=== PATIENT | female | born 1955 | race Caucasian/White ===

== ENCOUNTER 2019-07-20 01:57 | Inpatient (IN) ==
[2019-07-15 14:00] LABS: HEMATOCRIT 49.5 % (37.0-47.0); HEMOGLOBIN 16.6 g/dL (12.0-16.0); MCH 31.3 PG (27-31); MCHC 33.5 g/dL (33-37); MCV 93.2 FL (81-99); MPV 11.1 FL (7.4-10.4); RBC 5.31 XMIL (4.2-5.4); RDW 13.4 % (11.5-14.5); WBC 14.01 X1000 (4.8-10.8)
[2019-07-15 14:14] LABS: AGAP 13; BUN 13 mg/dL (8-22); CALCIUM 9.2 mg/dL (8.8-10.2); CHLORIDE 97 mmol/L (98-107); COSMO 270; CREATININE 0.7 mg/dL (0.5-0.9); ESTIMATED GFR > 60; GLUCOSE 165 mg/dL (70-104); POTASSIUM 4.5 mmol/L (3.5-5.1); SODIUM 133 mmol/L (136-145); TCO2 23 mmol/L (25-35)
--- NOTE | 2019-07-15 14:42 | EKG Report ---
Test Performed on : 07/15/2019 1:20:32 PM Test Reason : PAT Blood Pressure : / mmHG Vent. Rate : 096 BPM Atrial Rate : 096 BPM P-R Int : 166 ms QRS Dur : 078 ms QT Int : 386 ms P-R-T Axes : 074 073 090 degrees QTc Int : 487 ms Normal sinus rhythm. Normal ECG When compared with ECG of 25-JUN-2019 22:52, (Unconfirmed) No significant change was found Confirmed by Haleigh GODINEZ, Herminio Mckeon ([id number]) on 07/15/2019 10:16:55 PM
[2019-07-20] MEDS ORDERED: KEFZOL 1 GM/D5W 1 GM/50 ML IVPB ONE (10:20)
[2019-07-20] MEDS ORDERED: LR 1,000 ML ONE (10:20)
[2019-07-20] MEDS ORDERED: KEFZOL ONE (11:55)
[2019-07-20] MEDS ORDERED: NORCURON ONE ×2 (11:56→14:49)
[2019-07-20] MEDS ORDERED: THROMBIN-JMI ONE (11:56)
[2019-07-20] MEDS ORDERED: SODIUM CHLORIDE 0.9% 10 ML ONE (11:56)
[2019-07-20] MEDS ORDERED: HEPARIN ONE (11:56)
[2019-07-20] MEDS ORDERED: QUELICIN (DOSE) ONE (11:56)
[2019-07-20] MEDS ORDERED: XYLOCAINE-MPF 2% ONE (11:56)
[2019-07-20] MEDS ORDERED: NS 1,000 ML ONE ×2 (11:56→16:15)
[2019-07-20] MEDS ORDERED: SENSORCAINE 0.25%/EPI 1:200,000 ONE (11:56)
[2019-07-20] MEDS ORDERED: DIPRIVAN 1% ONE (11:56)
[2019-07-20] MEDS ORDERED: ROBINUL ONE (12:03)
[2019-07-20] MEDS ORDERED: HEPARIN (DOSE) ONE ×2 (12:05→13:37)
[2019-07-20] MEDS ORDERED: FENTANYL ONE ×2 (13:02→13:27)
[2019-07-20] MEDS ORDERED: ZOFRAN ONE (13:37)
[2019-07-20] MEDS ORDERED: DECADRON ONE (13:37)
[2019-07-20] MEDS ORDERED: NEO-SYNEPHRINE ONE (13:56)
[2019-07-20] MEDS ORDERED: STERILE WATER INJ. ONE (14:49)
[2019-07-20 15:04] LABS: URINE SOURCE CATH
[2019-07-20 15:11] LABS: BILIRUBIN URINE NEGATIVE (NEGATIVE); BLOOD URINE NEGATIVE (NEGATIVE); COLOR YELLOW; GLUCOSE URINE NEGATIVE (NEGATIVE); KETONE URINE NEGATIVE (NEGATIVE); LEUKOCYTES URINE NEGATIVE (NEGATIVE); NITRITE URINE NEGATIVE (NEGATIVE); PROTEIN URINE TRACE mg/dL (NEGATIVE); SP GRAVITY URINE 1.026; TURBIDITY URINE CLEAR (CLEAR); UROBILINOGEN URINE 2 mg/dL (NORMAL)
[2019-07-20 15:12] LABS: UR EPITHELIAL CELLS <10 /HPF (<10); URINE BACTERIA NEGATIVE /HPF; URINE RBC <10 /HPF (<10); URINE WBC <10 /HPF (<10)
[2019-07-20] MEDS: DILAUDID ONE ×2 (16:28→16:34)
--- NOTE | 2019-07-20 16:29 | OPERATIVE NOTE ---
PROCEDURE DATE: 07/20/2019 PROCEDURE PERFORMED: Left femoral popliteal in situ vein bypass. SURGEON: Lopez Mayers MD HRIS MANAGER: Scout Parsons RN PREOPERATIVE DIAGNOSIS: Left leg claudication secondary to left superficial femoral artery occlusion. POSTOPERATIVE DIAGNOSIS: Left leg claudication secondary to left superficial femoral artery occlusion. DESCRIPTION OF PROCEDURE: After satisfactory general endotracheal anesthesia was achieved, the left leg was prepped and draped in a sterile fashion. The foot was excluded. We made a vertical incision in the left groin and dissected down to the common femoral artery. We surrounded it with an umbilical tape proximally. The branches at the profunda were surrounded with a large vessel loop. The superficial femoral was surrounded with a large vessel loop. The small branches were wrapped with 2-0 silk. We identified the greater saphenous vein. We exposed it and ligated its branches. We marked it on its anterior aspect of the luis alberto so we would not twist it. We then turned our attention distally and made a longitudinal incision in the distal medial thigh. We then dissected into the popliteal space and identified the popliteal artery, surrounded it with the vessel loops proximally and distally. We went back and gave the patient 7000 units of heparin. After it had circulated for 3 minutes, we then placed a Satinsky clamp at the takeoff of the greater saphenous vein. We clamped off the vein with a small bulldog. We then transected the vein and oversewed the stump with a 5-0 Prolene horizontal mattress stitch, followed by a running stitch. We looked at the opened end. We placed it over to the artery and it was possible to place it at the bifurcation of the common femoral. We then clamped off the common femoral and occluded flow in the branch vessels and then incised the artery, extended it with the Pastor scissors, used a 6 punch. We spatulated the vein somewhat. One valve leaflet was excised. We then constructed the anastomosis with a 5-0 Prolene stitch. We then allowed flow into the first valve. We turned our attention distally and then dissected out the vein from the skin flap posteriorly. After exposing it, we marked it so we would not twist it. We found a branch. We then made a small transverse venotomy in the branch and passed the LeMaitre valvulotome up to the proximal anastomosis. We opened the valvulotome and then engaged the valves and came all the way down. We did this twice and after doing it twice, we had excellent pulsatile flow. We clipped off the branch through which we had entered the vein. We then dissected out the vein at the very distal end of the incision, transected that, and then ran the valvulotome from distal to proximal, first the small retrograde wire valvulotome. I was not completely satisfied with the flow so I then passed the LeMaitre valvulotome all the way back up and pulled it down and this improved the flow at the distal end. We clipped off the distal end. We then swung it or translocated it into the popliteal space. We occluded flow in the popliteal artery, incised the popliteal artery on its medial aspect, and extended it with the Pastor scissors, then cut the vein to match the arteriotomy. We then constructed this anastomosis under 2.5 loupe magnification using a 6-0 Prolene stitch. As we finished, we backbled the popliteal which we had passed a 4 into the popliteal and it admitted the 4 easily. There was satisfactory backbleeding. We then passed the 4 up the vein graft as well. Good antegrade flow continued. We then finished the anastomosis and flow was established. A couple of extra stitches were used to achieve complete hemostasis at the distal anastomosis and 1 at the proximal anastomosis. We then cut down on the 2 areas where branches were noted. We found the branches and clipped them off with medium clips. A good pulse was present. We were satisfied with our result. We then closed the distal wound with 2 layers, one with an interrupted 3-0 Polysorb and one with a running 2-0 Polysorb. The counterincisions were closed in the subcutaneous tissue with some 3-0 Polysorb. The proximal incision was closed with 2-0 Polysorb running x1 and interrupted 3-0 Polysorb in the subcutaneous tissue. The skin was then closed with amy. Sterile dressings were applied. She tolerated it well. Estimated blood loss was 700 mL. She was sent to the recovery room in satisfactory condition. cc: Lopez Mayers MD
[2019-07-20] MEDS ORDERED: ZOFRAN IV PRN (16:49)
[2019-07-20] MEDS ORDERED: DILAUDID IV PRN (16:49)
[2019-07-20] MEDS: NEURONTIN PO SCH ×2 (17:00→20:49)
[2019-07-20] MEDS: NS 1,000 ML IV SCH (17:10)
[2019-07-20] MEDS ORDERED: D5W IV SCH (18:00)
[2019-07-20] MEDS ORDERED: KEFZOL IV SCH (18:00)
[2019-07-20] MEDS: DESYREL PO SCH (20:47)
[2019-07-20] MEDS: LIPITOR PO SCH (20:47)
[2019-07-20] MEDS: GLUCOPHAGE XR PO SCH (20:48)
[2019-07-20] MEDS: KEFZOL 1 GM/D5W 1 GM/50 ML IVPB IV SCH (20:48)
[2019-07-20] MEDS: PERIDEX MT SCH (20:48)
[2019-07-20] MEDS: NORCO-10 PO PRN (20:49)
[2019-07-21] MEDS: NORCO-10 PO PRN ×3 (05:17→20:55)
[2019-07-21] MEDS: KEFZOL 1 GM/D5W 1 GM/50 ML IVPB IV SCH ×2 (05:18→12:33)
[2019-07-21] MEDS: NS 1,000 ML IV SCH (05:18)
[2019-07-21] MEDS ORDERED: LANTUS INSULIN SUBQ SCH ×2 (09:00→17:00)
[2019-07-21] MEDS ORDERED: NS 1,000 ML IV SCH (09:28)
[2019-07-21] MEDS: NEURONTIN PO SCH ×3 (10:11→20:54)
[2019-07-21] MEDS: ASPIRIN PO SCH (10:12)
[2019-07-21] MEDS: TOPROL XL PO SCH (10:13)
[2019-07-21] MEDS: PLAVIX PO SCH (10:13)
--- NOTE | 2019-07-21 10:13 | GENERAL SURGERY PROGRESS NOTE ---
DATE: 07/21/2019 SUBJECTIVE: She is postop day 1 after left femoral-popliteal in situ vein bypass. Her leg is warm. She has good Doppler flow at the dorsalis pedis and posterior tibial position. Her bandages are dry. OBJECTIVE: She is afebrile blood pressure 107/48, heart rate 70 and regular. Glucose is 203 0. PLAN: Will be to remove her Gutierrez catheter today. She will get up and move around. We will plan for discharge tomorrow. cc: Lopez Mayers MD
[2019-07-21] MEDS: GLUCOTROL PO SCH (10:14)
[2019-07-21] MEDS: GLUCOPHAGE XR PO SCH (10:15)
[2019-07-21] MEDS: LOFIBRA PO SCH (10:15)
[2019-07-21] MEDS: PERIDEX MT SCH ×2 (10:16→20:55)
[2019-07-21] MEDS: LIPITOR PO SCH (20:54)
[2019-07-21] MEDS: DESYREL PO SCH (20:54)
[2019-07-22 07:09] LABS: BASO# 0.04 X1000 (0.0-0.2); BASO% 0.3 % (0.0-0.8); EOS# 0.14 X1000 (0.0-0.7); HEMATOCRIT 35.4 % (37.0-47.0); HEMOGLOBIN 11.4 g/dL (12.0-16.0); LYMPH# 6.47 X1000 (1.2-3.4); LYMPH% 46.8 % (20.5-51.1); MCH 31.9 PG (27-31); MCHC 32.2 g/dL (33-37); MCV 99.2 FL (81-99); MONO# 1.13 X1000 (0.11-0.59); MONO% 8.2 % (1.7-9.3); MPV 11.2 FL (7.4-10.4); NEUT# 6.05 X1000 (1.4-6.5); NEUT% 43.7 % (42.2-75.2); PLT 185 X1000 (130-400); RBC 3.57 XMIL (4.2-5.4); RDW 13.5 % (11.5-14.5); WBC 13.83 X1000 (4.8-10.8)
[2019-07-22] MEDS: GLUCOPHAGE XR PO SCH ×2 (07:52→08:58)
[2019-07-22] MEDS: TOPROL XL PO SCH (08:58)
[2019-07-22] MEDS: GLUCOTROL PO SCH (08:58)
[2019-07-22] MEDS: PERIDEX MT SCH (08:58)
[2019-07-22] MEDS: PLAVIX PO SCH (08:58)
[2019-07-22] MEDS: NEURONTIN PO SCH ×2 (08:58→14:30)
[2019-07-22] MEDS: LOFIBRA PO SCH (08:58)
[2019-07-22] MEDS: ASPIRIN PO SCH (08:58)
[2019-07-22] MEDS: NORCO-10 PO PRN ×2 (09:05→14:29)
[2019-07-22 15:06] VITALS: BP 137/53
--- NOTE | 2019-07-22 20:31 | GENERAL SURGERY PROGRESS NOTE ---
DATE: 07/22/2019 SUBJECTIVE: She is now 2 days after her left femoral-popliteal in situ vein bypass. OBJECTIVE: She has flow in her graft. She has a good Doppler flow in the dorsalis pedis and posterior tibial positions. LABORATORY DATA: White count is down to 13,800. Hemoglobin 11.4. PLAN: Discharge. She will go home on aspirin and Plavix. I will give her something for pain. She will return to see me in the office in a week. Wound care and activity were discussed. cc: Lopez Mayers MD
--- NOTE | 2019-07-26 10:49 | VASCULAR LAB ---
DATE: 07/20/2019 PIPE LINER: Stacia REQUESTING PHYSICIAN: Dr. Mayers INDICATION: Preop left tibial bypass. FINDINGS: Starting at zone 1 proximally 5.2 mm, zone 2 was 5.5, zone 3 was 5.0, zone 4 was 4.0, zone 5 was 4.3, zone 6 was 2.5, zone 7 was 3.1, zone 8 was 3.5. IMPRESSION: There is adequate conduit in the left greater saphenous knee, especially to the knee. It does become smaller in the proximal calf but becomes a more adequate caliber distally. There is no evidence of superficial thrombus. cc: MD Lopez Horne MD
== END 2019-07-22 17:54 | disposition home or self-care (01) | DRG 254 ==
LOC: SURHOLD 01:57 → 4N 15:01
PROVIDERS: ADMIT Surgery; ATTEND Surgery

== ENCOUNTER 2019-08-03 15:57 | Inpatient (IN) ==
[2019-08-03] MEDS ORDERED: NAPROSYN PO PRN (17:31)
[2019-08-03] MEDS ORDERED: FLEXERIL PO PRN (17:31)
[2019-08-03 17:44] LABS: HEMATOCRIT 37.9 % (37.0-47.0); HEMOGLOBIN 12.3 g/dL (12.0-16.0); MCH 31.1 PG (27-31); MCHC 32.5 g/dL (33-37); MCV 95.9 FL (81-99); MPV 10.1 FL (7.4-10.4); RBC 3.95 XMIL (4.2-5.4); RDW 13.1 % (11.5-14.5); WBC 15.52 X1000 (4.8-10.8)
[2019-08-03] MEDS: ZOSYN 3.375 GM in NS 50 ML IV SCH ×2 (17:45→22:19)
[2019-08-03 17:59] LABS: AGAP 11; BUN 9 mg/dL (8-22); CALCIUM 9.6 mg/dL (8.8-10.2); CHLORIDE 99 mmol/L (98-107); COSMO 270; CREATININE 0.8 mg/dL (0.5-0.9); ESTIMATED GFR > 60; GLUCOSE 114 mg/dL (70-104); POTASSIUM 3.9 mmol/L (3.5-5.1); SODIUM 135 mmol/L (136-145); TCO2 25 mmol/L (25-35)
[2019-08-03] MEDS: MORPHINE IV PRN (18:16)
[2019-08-03] MEDS: LANTUS INSULIN SUBQ SCH (18:17)
[2019-08-03] MEDS: TOPROL XL PO SCH (21:06)
[2019-08-03] MEDS: LIPITOR PO SCH (21:06)
[2019-08-03] MEDS: GLUCOPHAGE XR PO SCH (21:06)
[2019-08-03] MEDS: DESYREL PO SCH (21:06)
[2019-08-03] MEDS: LOFIBRA PO SCH (21:06)
[2019-08-03] MEDS: VANCOMYCIN 1 GM/NS 1 GM/250 ML IVPB IV SCH (21:07)
[2019-08-04] MEDS: ZOSYN 3.375 GM in NS 50 ML IV SCH ×4 (05:10→22:43)
[2019-08-04] MEDS: NORCO-10 PO PRN ×3 (06:14→19:58)
[2019-08-04] MEDS ORDERED: ASPIRIN PO SCH (09:00)
[2019-08-04] MEDS ORDERED: PLAVIX PO SCH (09:00)
[2019-08-04] MEDS: ASPIRIN PO SCH (09:12)
[2019-08-04] MEDS: GLUCOPHAGE XR PO SCH ×2 (09:12→22:32)
[2019-08-04] MEDS: PLAVIX PO SCH (09:12)
[2019-08-04] MEDS: NEURONTIN PO SCH ×3 (09:13→19:55)
[2019-08-04] MEDS: GLUCOTROL PO SCH (09:13)
[2019-08-04] MEDS: LANTUS INSULIN SUBQ SCH (09:13)
--- NOTE | 2019-08-04 09:29 | GENERAL SURGERY PROGRESS NOTE ---
DATE: 08/04/2019 Ms. Sotelo is afebrile. Hemodynamics are satisfactorily. Her wound looks about the same. White count was [id number] when she was admitted last night. She is now on Zosyn and vancomycin. Her culture report is pending. We will recheck her white count tomorrow. cc: Lopez Mayers MD
[2019-08-04] MEDS: VANCOMYCIN 1 GM/NS 1 GM/250 ML IVPB IV SCH ×2 (09:41→22:31)
[2019-08-04] MEDS: LIPITOR PO SCH (22:31)
[2019-08-04] MEDS: TOPROL XL PO SCH (22:32)
[2019-08-04] MEDS: DESYREL PO SCH (22:32)
[2019-08-04] MEDS: LOFIBRA PO SCH (22:58)
[2019-08-05] MEDS: ZOSYN 3.375 GM in NS 50 ML IV SCH ×4 (01:00→20:15)
[2019-08-05 06:53] LABS: BASO# 0.03 X1000 (0.0-0.2); BASO% 0.2 % (0.0-0.8); EOS# 0.15 X1000 (0.0-0.7); EOS% 1.2 % (0.0-10.0); HEMATOCRIT 35.5 % (37.0-47.0); HEMOGLOBIN 11.5 g/dL (12.0-16.0); IMM GRAN# 0.04 X1000 (0.0-0.04); IMM GRAN% 0.3 % (0.0-0.5); LYMPH# 2.25 X1000 (1.2-3.4); LYMPH% 18.5 % (20.5-51.1); MCH 31.1 PG (27-31); MCHC 32.4 g/dL (33-37); MCV 95.9 FL (81-99); MONO# 1.38 X1000 (0.11-0.59); MONO% 11.3 % (1.7-9.3); MPV 10.2 FL (7.4-10.4); NEUT# 8.32 X1000 (1.4-6.5); NEUT% 68.5 % (42.2-75.2); PLT 369 X1000 (130-400); RDW 13.2 % (11.5-14.5); WBC 12.17 X1000 (4.8-10.8)
[2019-08-05] MEDS: MORPHINE IV PRN (10:00)
[2019-08-05] MEDS: LANTUS INSULIN SUBQ SCH (11:56)
[2019-08-05] MEDS: GLUCOPHAGE XR PO SCH ×2 (11:58→20:14)
[2019-08-05] MEDS: NEURONTIN PO SCH ×3 (11:58→17:19)
[2019-08-05] MEDS: GLUCOTROL PO SCH (11:58)
[2019-08-05] MEDS: ASPIRIN PO SCH (12:22)
[2019-08-05] MEDS: PLAVIX PO SCH (12:22)
--- NOTE | 2019-08-05 14:06 | GENERAL SURGERY PROGRESS NOTE ---
DATE: 08/05/2019 Ms. Sotelo's left groin looks better. It is less erythematous. White count is down to 12,000. She has grown a gram-negative clementina. Plan is to debride her wound tomorrow in the operating room. I will stop her vancomycin, and keep her on Zosyn. cc: Lopez Mayers MD
[2019-08-05] MEDS ORDERED: BENADRYL PO PRN (16:10)
[2019-08-05] MEDS: TOPROL XL PO SCH (20:14)
[2019-08-05] MEDS: LIPITOR PO SCH (20:14)
[2019-08-05] MEDS: DESYREL PO SCH (20:14)
[2019-08-05] MEDS: LOFIBRA PO SCH (20:14)
[2019-08-06] MEDS: ZOSYN 3.375 GM in NS 50 ML IV SCH ×4 (01:11→21:05)
[2019-08-06] MEDS ORDERED: DIPRIVAN 1% ONE (11:21)
[2019-08-06] MEDS ORDERED: FENTANYL ONE (11:21)
[2019-08-06] MEDS: NORCO-10 PO PRN ×2 (13:58→18:58)
[2019-08-06] MEDS: GLUCOPHAGE XR PO SCH ×2 (13:59→21:05)
[2019-08-06] MEDS: PLAVIX PO SCH (13:59)
[2019-08-06] MEDS: GLUCOTROL PO SCH (13:59)
[2019-08-06] MEDS: ASPIRIN PO SCH (13:59)
[2019-08-06] MEDS: NEURONTIN PO SCH ×3 (14:00→22:05)
--- NOTE | 2019-08-06 14:20 | OPERATIVE NOTE ---
PROCEDURE DATE: 08/06/2019 PROCEDURE PERFORMED: Excision and debridement of skin and soft tissue, left groin. SURGEON: Lopez Mayers MD. DATABASE SPECIALIST: Chioma MS 3. PREOPERATIVE DIAGNOSIS: Left groin wound infection. POSTOPERATIVE DIAGNOSIS: Left groin wound infection. INDICATIONS: A 64-year-old, who is a few weeks after left femoral-popliteal in situ vein bypass. She presents with a left groin wound infection and it appears superficial she has been admitted with IV antibiotic therapy. DESCRIPTION OF PROCEDURE: Satisfactory general anesthesia was achieved. An LMA was used. The left groin was prepped and draped in a sterile fashion. We sharply excised the necrotic tissue of the skin and subcutaneous tissue. It was superficial down to the first layer of sutures there was a hole that lymph and serum to drain out. No purulence was identified. We then copiously irrigated after the debridement of the skin and soft tissue. After it was debrided, we then packed with 1/2-inch iodoform gauze. This was covered with sterile 4x4s and an ABD. She tolerated it well. We did check the graft with Doppler. It continues to be patent and she has good Doppler flow to her foot. cc: Lopez Mayers MD
[2019-08-06] MEDS: MORPHINE IV PRN ×2 (15:25→21:23)
[2019-08-06] MEDS: LANTUS INSULIN SUBQ SCH (17:34)
[2019-08-06] MEDS: DESYREL PO SCH (21:05)
[2019-08-06] MEDS: LIPITOR PO SCH (21:05)
[2019-08-06] MEDS: TOPROL XL PO SCH (21:06)
[2019-08-06] MEDS: LOFIBRA PO SCH (21:10)
[2019-08-07] MEDS: ZOSYN 3.375 GM in NS 50 ML IV SCH ×5 (02:16→19:58)
[2019-08-07] MEDS: NORCO-10 PO PRN ×3 (07:45→18:51)
[2019-08-07] MEDS: GLUCOTROL PO SCH (09:17)
[2019-08-07] MEDS: MORPHINE IV PRN ×3 (09:17→22:23)
[2019-08-07] MEDS: PLAVIX PO SCH (09:18)
[2019-08-07] MEDS: NEURONTIN PO SCH ×3 (09:18→17:11)
[2019-08-07] MEDS: GLUCOPHAGE XR PO SCH ×2 (09:18→19:59)
[2019-08-07] MEDS: ASPIRIN PO SCH (09:18)
--- NOTE | 2019-08-07 09:23 | PROGRESS NOTE ---
DATE: 08/07/2019 Ms. Slime Sotelo is a patient Dr. Mayers. She developed an infection in the left groin wound, status post in situ left lower extremity bypass graft. She has been admitted for wound care and IV antibiotics. Her white blood cell count has gone from 15 to 12. The wound appears mostly clean, and we re-dressed it this morning. Her heart rate is 77, blood pressure 114/63, O2 saturation 98%. She is afebrile. She is on IV Zosyn. It appears that she has good flow to her left leg. She is on a diabetic diet. cc: MD Lopez Dallas MD
[2019-08-07] MEDS ORDERED: ZOFRAN IV PRN (13:12)
[2019-08-07] MEDS: LANTUS INSULIN SUBQ SCH (17:11)
[2019-08-07] MEDS: LIPITOR PO SCH (19:59)
[2019-08-07] MEDS: TOPROL XL PO SCH (19:59)
[2019-08-07] MEDS: DESYREL PO SCH (22:23)
[2019-08-08] MEDS: ZOSYN 3.375 GM in NS 50 ML IV SCH ×5 (01:53→20:08)
[2019-08-08] MEDS: LOFIBRA PO SCH ×2 (05:00→20:09)
[2019-08-08] MEDS: ASPIRIN PO SCH (08:22)
[2019-08-08] MEDS: NEURONTIN PO SCH ×3 (08:22→16:50)
[2019-08-08] MEDS: NORCO-10 PO PRN ×3 (08:23→20:18)
[2019-08-08] MEDS: GLUCOTROL PO SCH (08:23)
[2019-08-08] MEDS: PLAVIX PO SCH (08:23)
[2019-08-08] MEDS: GLUCOPHAGE XR PO SCH ×2 (08:23→20:03)
[2019-08-08] MEDS: MORPHINE IV PRN (09:25)
--- NOTE | 2019-08-08 09:31 | PROGRESS NOTE ---
DATE: 08/08/2019 Ms. Sotelo is a 64-year-old, white female, a patient of Dr. Mayers who has undergone a right tdykb-pur-teen amputation. Her dressing is intact. Her knee is extended and overall, she is doing well except for some complaints of constipation. Antibiotics continue, IV Zosyn. She is on a diabetic diet. cc: MD Lopez Dallas MD
--- NOTE | 2019-08-08 09:35 | PROGRESS NOTE ---
DATE: 08/08/2019 Ms. Slime Sotelo is a 64-year-old, white female, status post left femoropopliteal in situ arterial bypass graft with a now open left groin wound. She is on IV antibiotics and we are cleaning the wound daily with hydrogen peroxide. It seems to be cleaning up and healing by secondary intention. The wound was redressed this morning. She continues to be on IV antibiotics. cc: MD Lopez Dallas MD
[2019-08-08] MEDS: LANTUS INSULIN SUBQ SCH (18:55)
[2019-08-08] MEDS: DESYREL PO SCH (20:03)
[2019-08-08] MEDS: TOPROL XL PO SCH (20:03)
[2019-08-08] MEDS: LIPITOR PO SCH (20:03)
[2019-08-08] MEDS: COLACE PO SCH (20:03)
[2019-08-09] MEDS: ZOSYN 3.375 GM in NS 50 ML IV SCH ×2 (01:55→08:32)
[2019-08-09 07:41] VITALS: BP 122/55
[2019-08-09] MEDS: GLUCOTROL PO SCH (08:32)
[2019-08-09] MEDS: GLUCOPHAGE XR PO SCH (08:32)
[2019-08-09] MEDS: PLAVIX PO SCH (08:32)
[2019-08-09] MEDS: ASPIRIN PO SCH (08:32)
[2019-08-09] MEDS: COLACE PO SCH (08:32)
[2019-08-09] MEDS: NEURONTIN PO SCH (08:32)
[2019-08-09] MEDS: NORCO-10 PO PRN (08:35)
--- NOTE | 2019-08-09 08:39 | GENERAL SURGERY PROGRESS NOTE ---
DATE: 08/09/2019 SUBJECTIVE: Ms. Sotelo feels better. She is afebrile with stable hemodynamics. Her wound is draining some clear fluid, but it is less red, less indurated, and less painful. She is gradually improving. PLAN: The plan will be to discharge her today on Levaquin once daily. Will have her clean her wound with Vashe daily, and then use Drawtex to absorb the drainage from the wound. Home health is already involved. She will return to see me in the office in a week. cc: Lopez Mayers MD
--- NOTE | 2019-08-15 15:05 | DISCHARGE SUMMARY ---
ADMISSION DATE: 08/03/2019 DISCHARGE DATE: 08/09/2019 PRIMARY DISCHARGE DIAGNOSIS: Postop wound infection involving the left groin. PRIMARY PROCEDURE: Excisional debridement of skin and soft tissue of the left groin. HISTORY: This is a 64-year-old who is postop left femoral popliteal in situ vein bypass for claudication in the left lower extremity. Her procedure was done on July 20. She presented to the office with increasing pain, redness, swelling, and drainage from her left groin. So following her admission, she was placed on vancomycin and Zosyn. Culture report came back as E. Coli so her vancomycin was discontinued ultimately. She was taken to the operating room on the for debridement of her left groin wound. Following this, her wound improved. She had less induration, less erythema, less drainage. She remained ambulatory. She continued to have flow in her vein graft. We started treating her wound locally with wound Vashe to cleanse it and a Drawtex to absorb the wound drainage. By the it was felt she could be discharged home. She will be sent home on Levaquin 500 mg a day. Also wrote a prescription for some Ultram for pain. She will resume her other usual medicines. She will return to see me in the office in a week. cc: Lopez Mayers MD
== END 2019-08-09 10:17 | disposition home health service (06) | DRG 858 ==
LOC: DIRADM 15:57 → 4N 16:26
PROVIDERS: ADMIT Surgery; ATTEND Surgery